=== PATIENT | female | born 1970 | race Caucasian/White ===

== ENCOUNTER 2019-05-25 01:34 | Emergency (ER) | payer MEDICAID ==
[~2019-05-25] VITALS: Ht 167.6 cm; Wt 68.0 kg
[2019-05-25] MEDS ORDERED: METOCLOPRAMIDE HCL 10MG/2ML VIAL IV STA (03:01)
[2019-05-25] MEDS ORDERED: KETOROLAC 30MG/ML VIAL IV STA (03:01)
[2019-05-25] MEDS ORDERED: LORAZEPAM 2MG/ML CPJ IV ONE (03:15)
[2019-05-25 03:34] LABS: BASOPHILS % 0.7 % (0.0-2.0); EOSINOPHILS % 0.9 % (0.0-5.0); HEMATOCRIT. 45.8 % (36.0-48.0); HEMOGLOBIN. 15.4 g/dL (12.0-16.0); LYMPHOCYTES % 13.3 % (20.0-50.0); MEAN CORPUSCULAR HEMOGLOBIN 28.7 pg (28.0-32.0); MEAN CORPUSCULAR VOLUME 85.3 fL (81.0-99.0); MEAN PLATELET VOLUME 10.2 fl (7.4-10.4); MONOCYTES % 8.2 % (2.0-8.0); NEUTROPHILS % 76.9 % (40.0-76.0); PLATELET 194 x1000/uL (130-400); RED BLOOD CELL COUNT 5.37 mill/uL (4.2-5.4); RED CELL DISTRIBUTION WIDTH 13.3 % (11.6-14.6)
[2019-05-25 03:37] LABS: CHLORIDE 107 mEq/L (98-107)
[2019-05-25 03:37] LABS: CLARITY URINE CLOUDY (CLEAR); COLOR URINE YELLOW (YELLOW); KETONES URINE NEGATIVE (NEGATIVE); LEUKOCYTE ESTERASE URINE 2+ (NEGATIVE); NITRITE URINE NEGATIVE (NEGATIVE); OCCULT BLOOD URINE TRACE (NEGATIVE); PROTEIN URINE NEGATIVE (NEGATIVE); SPECIFIC GRAVITY URINE 1.005 (1.005-1.030); UROBILINOGEN URINE 0.2 E.U./dL (0.2-1.0)
[2019-05-25 03:43] LABS: INR 1.1; PROTHROMBIN TIME 11.2 sec (9.6-11.0)
[2019-05-25 05:44] VITALS: BP 133/64
== END 2019-05-25 05:30 | disposition home or self-care (01) ==
LOC: ER 01:34
DX: N39.0 Urinary tract infection, site not specified (principal); R51 Headache; E11.9 Type 2 diabetes mellitus without complications; I10 Essential (primary) hypertension; F41.9 Anxiety disorder, unspecified
CPT/HCPCS: 36415; 71045; 80053; 81003; 83690; 85025; 85610; 96374; 96375; 99284; J1885; J2060; J2765

== ENCOUNTER 2020-03-11 01:55 | Emergency (ER) | payer MEDICAID ==
[~2020-03-11] VITALS: Ht 149.9 cm; Wt 83.0 kg
[2020-03-11 03:00] LABS: BASOPHILS % 0.8 % (0.0-2.0); EOSINOPHILS % 3.5 % (0.0-5.0); HEMATOCRIT. 45.5 % (36.0-48.0); HEMOGLOBIN. 15.2 g/dL (12.0-16.0); LYMPHOCYTES % 17.6 % (20.0-50.0); MEAN CORPUSCULAR HEMOGLOBIN 28.8 pg (28.0-32.0); MEAN CORPUSCULAR VOLUME 86.3 fL (81.0-99.0); MEAN PLATELET VOLUME 9.7 fl (7.4-10.4); MONOCYTES % 9.6 % (2.0-8.0); NEUTROPHILS % 68.5 % (40.0-76.0); PLATELET 197 x1000/uL (130-400); RED BLOOD CELL COUNT 5.27 mill/uL (4.2-5.4); RED CELL DISTRIBUTION WIDTH 14.6 % (11.6-14.6)
[2020-03-11] MEDS ORDERED: SODIUM CHLORIDE 0.9% 1,000 ML IV ONE (03:00)
[2020-03-11 03:07] LABS: CHLORIDE 108 mEq/L (98-107)
[2020-03-11 03:11] LABS: ETHANOL BLOOD < 10 mg/dL
[2020-03-11 03:17] LABS: BETA HYDROXYBUTYRATE 0.1 mMol/L (0.0-0.3)
[2020-03-11 04:32] LABS: CLARITY URINE CLEAR (CLEAR); COLOR URINE YELLOW (YELLOW); KETONES URINE NEGATIVE (NEGATIVE); LEUKOCYTE ESTERASE URINE TRACE (NEGATIVE); NITRITE URINE NEGATIVE (NEGATIVE); OCCULT BLOOD URINE NEGATIVE (NEGATIVE); PROTEIN URINE NEGATIVE (NEGATIVE); SPECIFIC GRAVITY URINE 1.007 (1.005-1.030); UROBILINOGEN URINE 0.2 E.U./dL (0.2-1.0)
[2020-03-11 04:51] LABS: *AMPHETAMINES SCREEN URINE NEGATIVE (NEGATIVE); *BARBITURATES SCREEN URINE NEGATIVE (NEGATIVE); *BENZODIAZEPINES SCREEN URINE NEGATIVE (NEGATIVE); *COCAINE SCREEN URINE NEGATIVE (NEGATIVE); CANNABINOID URINE SCREEN NEGATIVE (NEGATIVE); METHADONE URINE SCREEN NEGATIVE (NEGATIVE); OPIATES URINE SCREEN NEGATIVE (NEGATIVE); PHENCYCLIDINE URINE SCREEN NEGATIVE (NEGATIVE)
[2020-03-11] MEDS ORDERED: CEFTRIAXONE 1 G PREMIX 50 ML IV SCH (05:30)
[2020-03-11 07:58] VITALS: BP 133/61
== END 2020-03-11 08:47 | disposition left against medical advice (07) ==
LOC: ER 01:55 → ENRESERV 07:23 → CANBEDREQ 08:28 → ER 08:47
DX: R00.0 Tachycardia, unspecified (principal); R00.2 Palpitations; E11.9 Type 2 diabetes mellitus without complications; E78.00 Pure hypercholesterolemia, unspecified; F17.290 Nicotine dependence, other tobacco product, uncomplicated
CPT/HCPCS: 36415; 71045; 80053; 80305; 80320; 81003; 82010; 82962; 83605; 83735; 83880; 84145; 84443; 84484; 85025; 85379; 87040; 93005; 96361; 96365; 99285; J0696; G0480

== ENCOUNTER 2020-09-29 21:52 | Emergency (ER) | payer MEDICAID ==
[~2020-09-29] VITALS: Ht 149.9 cm; Wt 83.0 kg
[2020-09-29 21:56] VITALS: BP 168/73
== END 2020-09-30 00:05 | disposition left against medical advice (07) ==
LOC: ER 21:52
DX: R53.1 Weakness (principal); Z53.21 Procedure and treatment not carried out due to patient leaving prior to being seen by health care provider
CPT/HCPCS: 93005

== ENCOUNTER 2021-08-18 06:05 | Emergency (ER) | payer MEDICAID ==
[~2021-08-18] VITALS: Ht 149.9 cm; Wt 81.0 kg
[2021-08-18] MEDS ORDERED: SODIUM CHLORIDE 0.9% 1,000 ML IV ONE (10:00)
[2021-08-18 10:32] LABS: CLARITY URINE CLEAR (CLEAR); COLOR URINE YELLOW (YELLOW); KETONES URINE 1+ (NEGATIVE); LEUKOCYTE ESTERASE URINE 2+ (NEGATIVE); NITRITE URINE NEGATIVE (NEGATIVE); OCCULT BLOOD URINE NEGATIVE (NEGATIVE); PROTEIN URINE NEGATIVE (NEGATIVE); UROBILINOGEN URINE 0.2 E.U./dL (0.2-1.0)
[2021-08-18] MEDS ORDERED: KETOROLAC 15MG/ML VIAL IV ONE (10:45)
[2021-08-18 11:07] LABS: BASOPHILS % 0.5 % (0.0-2.0); EOSINOPHILS % 1.4 % (0.0-5.0); HEMATOCRIT. 42.8 % (36.0-48.0); HEMOGLOBIN. 14.3 g/dL (12.0-16.0); LYMPHOCYTES % 24.2 % (20.0-50.0); MEAN CORPUSCULAR VOLUME 83.7 fL (81.0-99.0); MEAN PLATELET VOLUME 9.9 fl (7.4-10.4); MONOCYTES % 7.5 % (2.0-8.0); NEUTROPHILS % 66.4 % (40.0-76.0); PLATELET 164 x1000/uL (130-400); RED BLOOD CELL COUNT 5.11 mill/uL (4.2-5.4); RED CELL DISTRIBUTION WIDTH 13.8 % (11.6-14.6)
[2021-08-18 11:16] LABS: CHLORIDE 108 mEq/L (98-107)
[2021-08-18] MEDS ORDERED: IOHEXOL-300 100 ML BOTTLE ONE (14:04)
[2021-08-18] MEDS ORDERED: CEPH500C2 MT (14:39)
[2021-08-18 14:46] VITALS: BP 123/65
== END 2021-08-18 15:07 | disposition home or self-care (01) ==
LOC: ER 06:25
DX: N39.0 Urinary tract infection, site not specified (principal); R10.30 Lower abdominal pain, unspecified; E11.9 Type 2 diabetes mellitus without complications; I10 Essential (primary) hypertension; Z90.49 Acquired absence of other specified parts of digestive tract; Z98.890 Other specified postprocedural states
CPT/HCPCS: 36415; 74177; 80053; 81003; 82962; 83690; 85025; 96361; 96374; 99285; J1885; J7030; Q9967

== ENCOUNTER 2021-11-03 07:27 | Emergency (ER) | payer MEDICAID ==
[~2021-11-03] VITALS: Ht 149.9 cm; Wt 67.0 kg
[~2021-11-03 07:27] MED LIST: CEPH500C2 MT
[2021-11-03] MEDS ORDERED: ASPIRIN 81MG TABLET PO ONE (09:15)
[2021-11-03] MEDS ORDERED: NITROGLYCERIN 0.4MG TABLET SL SL PRN (09:15)
[2021-11-03 09:35] LABS: BASOPHILS % 0.5 % (0.0-2.0); HEMATOCRIT. 45.5 % (36.0-48.0); HEMOGLOBIN. 14.9 g/dL (12.0-16.0); LYMPHOCYTES % 20.2 % (20.0-50.0); MEAN CORPUSCULAR HEMOGLOBIN 27.7 pg (28.0-32.0); MEAN CORPUSCULAR VOLUME 84.8 fL (81.0-99.0); MEAN PLATELET VOLUME 9.6 fl (7.4-10.4); MONOCYTES % 7.1 % (2.0-8.0); NEUTROPHILS % 70.2 % (40.0-76.0); PLATELET 221 x1000/uL (130-400); RED BLOOD CELL COUNT 5.37 mill/uL (4.2-5.4); RED CELL DISTRIBUTION WIDTH 14.2 % (11.6-14.6)
[2021-11-03 09:46] LABS: CHLORIDE 105 mEq/L (98-107)
[2021-11-03] MEDS ORDERED: ACETAMINOPHEN WITH CODEINE 300/30MG TABLET PO ONE (10:00)
[2021-11-03] MEDS ORDERED: ACETAMINOPHEN WITH CODEINE 300/30MG TABLET PO NR (10:15)
[2021-11-03 10:33] VITALS: BP 155/69
[2021-11-03] MEDS ORDERED: IBUP-2029 MT (12:26)
== END 2021-11-03 13:02 | disposition home or self-care (01) ==
LOC: ER 07:27
DX: R07.89 Other chest pain (principal); E11.65 Type 2 diabetes mellitus with hyperglycemia; I10 Essential (primary) hypertension; Z87.440 Personal history of urinary (tract) infections; Z90.49 Acquired absence of other specified parts of digestive tract; Z98.890 Other specified postprocedural states
CPT/HCPCS: 36415; 71045; 80053; 83880; 84484; 85025; 93005; 99285; Z7610

== ENCOUNTER 2025-04-01 19:43 | Emergency (ER) | payer MEDICAID ==
[~2025-04-01] VITALS: Ht 162.6 cm; Wt 63.0 kg
[~2025-04-01 19:43] MED LIST changes: +IBUP-1455 MT
[2025-04-01 19:47] VITALS: BP 154/62; PULSE 104; RESP 20; TEMP 98.6; O2SAT 100
[2025-04-01] MEDS: VISCOUS LIDOCAINE 2% 15 ML UDC MM PRN (20:19)
== END 2025-04-01 22:50 | disposition left against medical advice (07) ==
LOC: ER 19:43
DX: R09.89 Other specified symptoms and signs involving the circulatory and respiratory systems (principal); E11.9 Type 2 diabetes mellitus without complications; I10 Essential (primary) hypertension; Z90.49 Acquired absence of other specified parts of digestive tract; Z88.1 Allergy status to other antibiotic agents
CPT/HCPCS: 99283